=== PATIENT | female | born 1985 | race African-American/Black ===

== ENCOUNTER 2016-06-30 20:03 | Emergency (ER) | payer OTHER ==
[~2016-06-30] VITALS: Ht 172.7 cm; Wt 115.5 kg
[~2016-06-30 20:03] MED LIST: DOCU-144 PO; FER325 PO; FERR325T82 PO; ONDA8TAB9 PO; PANT40TA3 PO; PREN-46 PO
[2016-06-30 20:08] VITALS: Ht 172.7 cm; Wt 115.5 kg
[2016-06-30] MEDS ORDERED: ONDANSETRON (ODT) 4 MG TAB ODT STA (20:50)
[2016-06-30] MEDS ORDERED: HYDROCODONE/APAP (10/325) TAB PO ONE (21:00)
[2016-06-30 21:10] LABS: URINE BLOOD (Dip) POC 3+ (NEGATIVE)
--- NOTE | 2016-06-30 22:08 | RADRPT ---
PROCEDURE: CT Brain without contrast. CLINICAL INDICATION: Headaches TECHNIQUE: A CT of the brain was performed on a [employer] 64-slice CT scanner utilizing axial imaging from the skull base through the vertex without IV contrast. Multiplanar reformatted images were made. Images were reviewed on a PACS workstation. The CTDIvol is 44.97 mGy and the DLP is 720 .23 mGycm. One of the following 3 dose reduction techniques were used: Automated exposure control; adjustment of the mA and/or kV according to patient size; or use of iterative reconstruction technique. COMPARISON: None available FINDINGS: There is no intracranial hemorrhage, mass effect, or midline shift. No extra-axial fluid collection is seen. The ventricles and sulci are normal in size and configuration. The density of the brain is normal, and the jeffries white matter differentiation appears well-preserved. The visualized scalp and calvarium are normal. The bilateral orbits are normal. The bilateral para nasal sinuses, mastoid air cells and middle ear cavities are clear. IMPRESSION: 1. No evidence of acute intracranial hemorrhage, infarcts, or acute intracranial pathology. 2. Normal noncontrast head CT. RPTAT: [facility] .Jennifer Gonzales MD, Date Time Electronically viewed and signed by .Jennifer Gonzales MD, MD on 06/30/2016 22:08 .C/
--- NOTE | 2016-06-30 22:22 | RADRPT ---
PROCEDURE: CT abdomen and pelvis without contrast. CLINICAL INDICATION: Abdominal pain TECHNIQUE: CT scan of the abdomen and pelvis without contrast was performed on a multislice CT [facility] utilizing axial imaging from the lung bases through the pubis symphysis. The patient was scann ed without intravenous contrast. Sagittal and coronal reformatted images were made. The CTDIvol is 20.87 mGy and the DLP is 1309.64 mGycm. One of the following 3 dose reduction techniques were used during this CT examination: automated exp osure control; adjustment of the mA and /or kV according to patient size; or use of iterative recons truciton technique. COMPARISON: Ultrasound of the abdomen 03/07/2013 FINDINGS: The lung bases are clear. The heart size is normal. No pericardial or pleural effusions are present . The visualized liver is of normal size and attenuation without focal lesions present. The visual ized spleen, pancreas, gallbladder, and bilateral adrenal glands are normal. The bilateral kidneys are normal. No evidence for hydroureteronephrosis or nephroureterolithiasis is present. The visualized bowel is nonobstructive. No evidence for diverticulosis, diverticulitis, or appendic itis is present. Oral contrast is noted with in the colon. The visualized aorta is normal without aneurysmal dilatation. The visualized pelvis demonstrates the moderately enlarged uterus. An intrauterine device is presen t within the lower uterine segment. No evidence for masses, pathologic lymphadenopathy, ascites, or pneumoperitoneum is present. Moderately well distended urinary bladder is present. The imaged osseous structures are normal. IMPRESSION: 1. No evidence for acute intra-abdominal or pelvic pathology. 2. Moderately enlarged uterus with intrauterine device present RPTAT: [facility] .Jennifer Gonzales MD, MD Date Time Electronically viewed and signed by .Jennifer Gonzales MD, MD on 06/30/2016 22:22 .C/
[2016-06-30] MEDS ORDERED: CEPH-443 PO (22:48)
[2016-06-30] MEDS ORDERED: HYDR-902 PO (22:48)
[2016-06-30] MEDS ORDERED: IBUP-1542 PO (22:48)
--- NOTE | 2016-06-30 23:03 | ERD ---
ER Documentation Chief Complaint Date/Time DATE: 06/30/16 TIME: 23:01 Chief Complaint lower abd pain, headcahe, dizziness HPI Patient is a 30-year-old female with no medical problems who presents with headache and abdominal pain. The symptoms started last week. She had lower pelvic pain that was worse with eating. She also had right-sided leg pain. She had vaginal discharge and spotting with urination. Now she has a headache as well which was gradual in onset. She has bilateral eye pain. She tried Tylenol. She tried to schedule appointment with her primary doctor but there was no appointment available. Upon review of old medical records this is the patient's third visit to the ER since 2013. ROS All systems reviewed and are negative except as per history of present illness. Medications Home Meds Active Scripts Cephalexin* (Keflex*) 500 Mg Capsule, 500 MG PO QID for 7 Days, CAP Prov:WAYNE PERALES MD 06/30/16 Hydrocodone/Acetaminophen ([place] 10-325 Tablet) 1 Each Tablet, 1 TAB PO Q6H Y for PAIN, #7 TAB Prov:WAYNE PERALES MD 06/30/16 Ibuprofen* (Motrin*) 600 Mg Tab, 600 MG PO Q6H Y for PAIN AND OR ELEVATED TEMP, #30 TAB Prov:WAYNE PERALES MD 06/30/16 Docusate Sodium* (Colace*) 100 Mg Capsule, 100 MG PO TID, #30 CAP Prov:Nano Upton PA-C 12/21/15 Ferrous Sulfate* (Ferrous Sulfate*) 325 Mg Tabec, 325 MG PO DAILY for 30 Days, # 30 TAB Prov:Nano Upton PA-C 12/21/15 Reported Medications Ondansetron Hcl* (Zofran*) 8 Mg Tablet, 8 MG PO Q6 Y 03/09/13 Pantoprazole* (Protonix*) 40 Mg Tablet.dr, 40 MG PO BID 03/09/13 Vit #108/Iron/Fa ( ONE TABLET) 1 Each Tablet, 1 EACH PO DAILY 03/09/13 Ferrous Sulfate (CHRISTIE-TIME) 325 Mg Tablet, 325 MG PO BID 03/09/13 Allergies Allergies: Coded Allergies: No Known Allergy (Unverified , 03/05/13) PMhx/Soc Medical and Surgical Hx: pt denies Medical Hx, pt denies Surgical Hx History of Surgery: Yes (Appendectomy) Anesthesia Reaction: No Hx Neurological Disorder: No Hx Respiratory Disorders: No Hx Cardiac Disorders: No Hx Psychiatric Problems: No Hx Miscellaneous Medical Probl: No Hx Alcohol Use: No Hx Substance Use: No Hx Tobacco Use: No Smoking Status: Never smoker FmHx Family History: No diabetes Physical Exam Vitals Vital Signs Date Time Temp Pulse Resp B/P Pulse Ox O2 Delivery O2 Flow Rate FiO2 06/30/16 20:08 98.3 79 20 127/64 99 Physical Exam Const: Moderate distress secondary to pain Head: Atraumatic Eyes: Normal Conjunctiva ENT: Normal External Ears, Nose and Mouth. Neck: Full range of motion..~ No meningismus. Resp: Clear to auscultation bilaterally Cardio: Regular rate and rhythm, no murmurs Abd: Soft, pain over the bladder without any rebound or guarding Skin: No petechiae or rashes Back: No midline or flank tenderness Ext: No cyanosis, or edema Neur: Awake and alert, no slurred speech, no weakness of the upper or lower tremors bilaterally, cranial nerves II through XII are intact Psych: Normal Mood and Affect Results 24 hrs Laboratory Tests Test 06/30/16 21:12 Bedside Urine pH (LAB) 7.0 Bedside Urine Protein (LAB) 2+ Bedside Urine Glucose (UA) Negative Bedside Urine Ketones (LAB) Trace Bedside Urine Blood 3+ Bedside Urine Nitrite (LAB) Negative Bedside Urine Leukocyte Esterase (L Trace Current Medications Medications (Trade) Dose Ordered Sig/Nikhil Route PRN Reason Start Time Stop Time Status Last Admin Dose Admin Acetaminophen/ Hydrocodone Bitart ([place] (10/325)) 1 tab ONCE ONCE PO 06/30/16 21:00 06/30/16 21:01 DC 06/30/16 22:04 Ondansetron HCl (Zofran Odt) 4 mg ONCE STAT ODT 06/30/16 20:50 06/30/16 20:52 DC Procedures/MDM CT head negative per radiology. CT abdomen pelvis negative per radiology. Patient is a 30-year-old female presents with multiple complaints. She had headache and abdominal pain. Her plan was over the bladder. The patient has a mild UTI on urinalysis. I believe outpatient management is appropriate at this time. The patient will be given a prescription for ibuprofen and [place] as well as Keflex. I doubt appendicitis, cholecystitis, pancreatitis, or bowel obstruction. I doubt stroke or intracranial hemorrhage. I believe outpatient management is appropriate but she will need close follow-up with her primary doctor within 24 hours. She can return sooner for any worsening symptoms. She was given copies of the imaging test prior to discharge. Departure Diagnosis: Primary Impression: Cystitis Additional Impressions: Headache Headache type: unspecified Headache chronicity pattern: acute headache Intractability: not intractable Qualified Code: R51 - Acute nonintractable headache, unspecified headache type Abdominal pain Abdominal location: unspecified location Qualified Code: R10.9 - Abdominal pain, unspecified location Condition: Fair Patient Instructions: Abdominal Pain, Self-Care for Headaches, Cystitis Referrals: Your doctor Additional Instructions: Call your primary care doctor TOMORROW for an appointment during the next 1-2 days.See the doctor sooner or return here if your condition worsens before your appointment time. WAYNE PERALES MD June 30, 2016 23:03
[2016-06-30 23:34] VITALS: BP 130/74; PULSE 63; RESP 18; TEMP 98.3
== END 2016-06-30 23:35 | disposition home or self-care (01) ==
LOC: FTE 20:03
DX: N30.00 Acute cystitis without hematuria (principal); R51 Headache; R10.2 Pelvic and perineal pain
CPT/HCPCS: 70450; 74176; 81003; Z7502; Z7610

== ENCOUNTER 2016-12-26 20:03 | Emergency (ER) | payer SELFPAY ==
[~2016-12-26 20:03] MED LIST changes: +CEPH-443 PO; +HYDR-902 PO; +IBUP-1542 PO
== END 2016-12-26 23:53 | disposition left against medical advice (07) ==
LOC: E/R 20:03
DX: Z53.21 Procedure and treatment not carried out due to patient leaving prior to being seen by health care provider (principal)

== ENCOUNTER 2017-02-06 19:22 | Emergency (ER) | payer OTHER ==
[~2017-02-06] VITALS: Ht 170.2 cm; Wt 120.0 kg
[2017-02-06 19:26] VITALS: Ht 170.2 cm; Wt 120.0 kg
[2017-02-06] MEDS ORDERED: ONDANSETRON 4 MG INJ IV STA (20:24)
[2017-02-06] MEDS ORDERED: morphine 4 MG/ML VIAL IV STA (20:24)
[2017-02-06 21:03] LABS: ADD UMIC YES; UR ASCORBIC ACID NEGATIVE (NEGATIVE); UR BILIRUBIN (Dip) NEGATIVE (NEGATIVE); UR BLOOD (Dip) 2+ mg/dL (NEGATIVE); UR CLARITY CLEAR (CLEAR); UR COLOR YELLOW (YELLOW); UR GLUCOSE (Dip) NEGATIVE (NEGATIVE); UR KETONES (Dip) NEGATIVE (NEGATIVE); UR LEUKOCYTE ESTERASE (Dip) NEGATIVE Leu/ul (NEGATIVE); UR NITRITE (Dip) NEGATIVE (NEGATIVE); UR RBC 0 /HPF (0-5); UR TOTAL PROTEIN (Dip) NEGATIVE (NEGATIVE); UR UROBILINOGEN (Dip) 1+ mg/dL (NEGATIVE)
[2017-02-06 21:15] LABS: BASOPHILS % 0.8 % (0.0-2.0); EOSINOPHILS # 0.1 10^3/ul (0.0-0.5); EOSINOPHILS % 1.9 % (0.0-7.0); HEMATOCRIT 29.8 % (37.0-47.0); HEMOGLOBIN 10.1 g/dl (12.0-16.0); LYMPHOCYTES # 1.5 10^3/ul (0.8-2.9); LYMPHOCYTES % 31.4 % (15.0-51.0); MEAN CORPUSCULAR HEMOGLOBIN 28.3 pg (29.0-33.0); MEAN CORPUSCULAR HGB CONC 33.9 g/dl (32.0-37.0); MEAN CORPUSCULAR VOLUME 83.5 fl (82.0-101.0); MEAN PLATELET VOLUME 9.9 fl (7.4-10.4); MONOCYTE # 0.3 10^3/ul (0.3-0.9); MONOCYTES % 6.8 % (0.0-11.0); NEUTROPHIL # 2.8 10^3/ul (1.6-7.5); NEUTROPHILS % 58.9 % (39.0-77.0); PLATELET COUNT 244 10^3/UL (140-415); RED BLOOD COUNT 3.57 10^6/ul (4.20-5.40); RED CELL DISTRIBUTION WIDTH 16.2 % (11.5-14.5); WHITE BLOOD COUNT 4.7 10^3/ul (4.8-10.8)
--- NOTE | 2017-02-06 21:27 | RADRPT ---
PROCEDURE: CT abdomen and pelvis without contrast. CLINICAL INDICATION: Abdominal Pain TECHNIQUE: CT scan of the abdomen and pelvis without intravenous but with oral contrast was perfor med and is reconstructed at 2.5 mm contiguous axial intervals from the dome of the diaphragm to the inferior pubic rami.. The patient was scanned without intravenous contrast. Sagittal and coronal r eformatted images were obtained from the axial source images. The calculated radiation dose measures 1173 mGy centimeters. The CTDI measures 20 mGy. Individualized dose optimization technique was used for the performance of this exam. This included 1. Automated exposure control. 2. Adjustment of the mA and / or kV according to the patient's size. 3. Use of iterative reconstructed technique. COMPARISON: CT abdomen pelvis June 30, 2016 FINDINGS: The lung bases are clear of any infiltrate or nodule. No effusion is seen. The liver is of normal size, contour and attenuation with no mass or ductal dilatation. No gallston es are visualized. No splenic, adrenal or pancreatic abnormalities present. Kidneys are of normal size and contour. No hydronephrosis, calculus or masses seen. Ureters are o f normal course and caliber with no stone. No bladder mass or stone is present. Uterus appears norm al. No adnexal mass is seen. There is no aneurysm. No adenopathy is present. No bowel mass or obstruction is present. The appendix is not confidently visualized, however, no inflamed appendix is seen. No phlegmon, ascites or pneumoperitoneum is visualized. The osseous structures are intact. IMPRESSION: No evidence of urolithiasis, obstructive uropathy, diverticulitis or appendicitis. .Jaime Meza MD, MD Date Time Electronically viewed and signed by .Jaime Meza MD, MD on 02/06/2017 21:26 .A/
[2017-02-06 21:40] LABS: ALBUMIN 4.2 g/dl (3.3-4.9); ALBUMIN/GLOBULIN RATIO 1.07; BILIRUBIN,INDIRECT 0.7 mg/dl (0-1.1); BILIRUBIN,TOTAL 0.7 mg/dl (0.2-1.3); CALCIUM 9.9 mg/dl (8.4-10.2); CREATININE 0.9 mg/dl (0.44-1.00); POTASSIUM 3.5 mmol/L (3.5-5.1); TOTAL PROTEIN 8.1 g/dl (6.1-8.1)
--- NOTE | 2017-02-06 21:40 | ERD ---
ER Documentation Chief Complaint Chief Complaint LLQ pain for 4 days with nausea HPI This is a 31-year-old female who presents the emergency department today complaining of left sided abdominal pain and nausea for the past 3 days. indicated that patient came the other day but left because the wait was too long. States that she does have a history of anemia. States that she recently had her IUD out and had her menstrual cycle a short time after that. States that she does have a history of anemia. States he is unsure if she is . Denies any fevers or chills, dysuria. ROS All systems reviewed and are negative except as per history of present illness. Medications Home Meds Active Scripts Ondansetron Hcl* (Zofran*) 4 Mg Tablet, 4 MG PO Q6H for NAUSEA AND/OR VOMITING, #30 TAB Prov:ESTHELA NOBLE PA-C 02/06/17 Ferrous Sulfate* (Ferrous Sulfate*) 325 Mg Tabec, 325 MG PO BID, #30 TAB Prov:ESTHELA NOBLE PA-C 02/06/17 Naproxen* (Naprosyn*) 500 Mg Tablet, 500 MG PO BID Y for PAIN AND/OR INFLAMMATION, #30 TAB Prov:ESTHELA NOBLE PA-C 02/06/17 Hydrocodone/Acetaminophen ([place] 5-325 Tablet) 1 Each Tablet, 1 TAB PO Q6H Y for PAIN, #12 TAB Prov:ESTHELA NOBLE PA-C 02/06/17 Polyethylene Glycol* (Miralax*) 17 Gm Powd.pack, 17 GM PO DAILY, #15 Prov:ESTHELA NOBLE PA-C 02/06/17 Cephalexin* (Keflex*) 500 Mg Capsule, 500 MG PO QID for 7 Days, CAP Prov:WAYNE PERALES MD 06/30/16 Hydrocodone/Acetaminophen ([place] 10-325 Tablet) 1 Each Tablet, 1 TAB PO Q6H Y for PAIN, #7 TAB Prov:WAYNE PERALES MD 06/30/16 Ibuprofen* (Motrin*) 600 Mg Tab, 600 MG PO Q6H Y for PAIN AND OR ELEVATED TEMP, #30 TAB Prov:WAYNE PERALES MD 06/30/16 Docusate Sodium* (Colace*) 100 Mg Capsule, 100 MG PO TID, #30 CAP Prov:Nano Upton PA-C 12/21/15 Ferrous Sulfate* (Ferrous Sulfate*) 325 Mg Tabec, 325 MG PO DAILY for 30 Days, # 30 TAB Prov:Nano Upton PA-C 12/21/15 Reported Medications Ondansetron Hcl* (Zofran*) 8 Mg Tablet, 8 MG PO Q6 Y 03/09/13 Pantoprazole* (Protonix*) 40 Mg Tablet.dr, 40 MG PO BID 03/09/13 Vit #108/Iron/Fa ( ONE TABLET) 1 Each Tablet, 1 EACH PO DAILY 03/09/13 Ferrous Sulfate (CHRISTIE-TIME) 325 Mg Tablet, 325 MG PO BID 03/09/13 Allergies Allergies: Coded Allergies: No Known Allergy (Unverified , 03/05/13) PMhx/Soc Medical and Surgical Hx: pt denies Surgical Hx History of Surgery: Yes (Appendectomy) Anesthesia Reaction: No Hx Neurological Disorder: No Hx Respiratory Disorders: No Hx Cardiac Disorders: No Hx Psychiatric Problems: No Hx Miscellaneous Medical Probl: No Hx Alcohol Use: No Hx Substance Use: No Hx Tobacco Use: No Smoking Status: Never smoker Physical Exam Vitals Vital Signs Date Time Temp Pulse Resp B/P Pulse Ox O2 Delivery O2 Flow Rate FiO2 02/06/17 23:43 98.2 69 20 135/80 100 Room Air 02/06/17 19:26 98.3 86 24 127/77 98 Physical Exam Const: mild distress Head: Atraumatic Eyes: Normal Conjunctiva ENT: Normal External Ears, Nose and Mouth. Neck: Full range of motion..~ No meningismus. Resp: Clear to auscultation bilaterally Cardio: Regular rate and rhythm, no murmurs Abd: Soft, left lower quadrant pain non distended. Normal bowel sounds no right lower quadrant pain. No tenderness at McBurney's. Skin: No petechiae or rashes Back: No midline or flank tenderness Ext: No cyanosis, or edema Neur: Awake and alert Psych: Normal Mood and Affect Result Diagram: 02/06/17204902/06/172049 Results 24 hrs Laboratory Tests Test 02/06/17 20:30 02/06/17 20:50 Urine Color YELLOW Urine Clarity CLEAR Urine pH 7.0 Urine Specific [place] 1.010 Urine Ketones NEGATIVEmg/dL Urine Nitrite NEGATIVEmg/dL Urine Bilirubin NEGATIVEmg/dL Urine Urobilinogen 1+mg/dL Urine Leukocyte Esterase NEGATIVELeu/ul Urine Microscopic RBC 0/HPF Urine Microscopic WBC 1/HPF Urine Hemoglobin 2+mg/dL Urine Glucose NEGATIVEmg/dL Urine Total Protein NEGATIVEmg/dl White Blood Count 4.710^3/ul Red Blood Count 3.5710^6/ul Hemoglobin 10.1g/dl Hematocrit 29.8% Mean Corpuscular Volume 83.5fl Mean Corpuscular Hemoglobin 28.3pg Mean Corpuscular Hemoglobin Concent 33.9g/dl Red Cell Distribution Width 16.2% Platelet Count 34988^3/UL Mean Platelet Volume 9.9fl Neutrophils % 58.9% Lymphocytes % 31.4% Monocytes % 6.8% Eosinophils % 1.9% Basophils % 0.8% Nucleated Red Blood Cells % 0.0/100WBC Neutrophils # 2.810^3/ul Lymphocytes # 1.510^3/ul Monocytes # 0.310^3/ul Eosinophils # 0.110^3/ul Basophils # 0.010^3/ul Nucleated Red Blood Cells # 0.010^3/ul Sodium Level 142mmol/L Potassium Level 3.5mmol/L Chloride Level 105mmol/L Carbon Dioxide Level 25mmol/L Anion Gap 16 Blood Urea Nitrogen 10mg/dl Creatinine 0.90mg/dl Glucose Level 78mg/dl Calcium Level 9.9mg/dl Total Bilirubin 0.7mg/dl Direct Bilirubin 0.00mg/dl Indirect Bilirubin 0.7mg/dl Aspartate Amino Transf (AST/SGOT) 21IU/L Alanine Aminotransferase (ALT/SGPT) 31IU/L Alkaline Phosphatase 92IU/L Total Protein 8.1g/dl Albumin 4.2g/dl Globulin 3.90g/dl Albumin/Globulin Ratio 1.07 Lipase 166U/L Current Medications Medications (Trade) Dose Ordered Sig/Nikhil Route PRN Reason Start Time Stop Time Status Last Admin Dose Admin Morphine Sulfate (morphine) 4 mg ONCE STAT IV 02/06/17 20:24 02/06/17 20:26 DC 02/06/17 20:41 Ondansetron HCl (Zofran Inj) 4 mg ONCE STAT IV 02/06/17 20:24 02/06/17 20:26 DC 02/06/17 20:41 Ketorolac Tromethamine (Toradol) 30 mg ONCE STAT IV 02/06/17 22:36 02/06/17 22:37 DC 02/06/17 22:48 DIAGNOSTIC IMAGING REPORT Patient: DAYANA GARNER : 1985 Age: 31 Sex: F MR #: [id number] DOS: 02/06/172039 Ordering MD: ESTHELA NOBLE PA-C Location: [facility] Room/Bed: PROCEDURE: CT abdomen and pelvis without contrast. CLINICAL INDICATION: Abdominal Pain TECHNIQUE: CT scan of the abdomen and pelvis without intravenous but with oral contrast was performed and is reconstructed at 2.5 mm contiguous axial intervals from the dome of the diaphragm to the inferior pubic rami.. The patient was scanned without intravenous contrast. Sagittal and coronal reformatted images were obtained from the axial source images. The calculated radiation dose measures 1173 mGy centimeters. The CTDI measures 20 mGy. Individualized dose optimization technique was used for the performance of this exam. This included 1. Automated exposure control. 2. Adjustment of the mA and / or kV according to the patient's size. 3. Use of iterative reconstructed technique. COMPARISON: CT abdomen pelvis June 30, 2016 FINDINGS: The lung bases are clear of any infiltrate or nodule. No effusion is seen. The liver is of normal size, contour and attenuation with no mass or ductal dilatation. No gallstones are visualized. No splenic, adrenal or pancreatic abnormalities present. Kidneys are of normal size and contour. No hydronephrosis, calculus or masses seen. Ureters are of normal course and caliber with no stone. No bladder mass or stone is present. Uterus appears normal. No adnexal mass is seen. There is no aneurysm. No adenopathy is present. No bowel mass or obstruction is present. The appendix is not confidently visualized, however, no inflamed appendix is seen. No phlegmon, ascites or pneumoperitoneum is visualized. The osseous structures are intact. IMPRESSION: No evidence of urolithiasis, obstructive uropathy, diverticulitis or appendicitis. .Jaime Meza MD, MD Date Time Electronically viewed and signed by .Jaime Meza MD, MD on 02/06/2017 21: 26 .A/ CC: ESTHELA NOBLE PA-C DIAGNOSTIC IMAGING REPORT Patient: DAYANA GARNER : 1985 Age: 31 Sex: F MR #: [id number] DOS: 02/06/17 0000 Ordering MD: ESTHELA NOBLE PA-C Location: [facility] Room/Bed: PROCEDURE: Pelvic ultrasound. CLINICAL INDICATION: Pelvic pain. TECHNIQUE: Multiple sonographic images of the pelvis were obtained utilizing a transabdominal and endovaginal technique. The images were reviewed on a PACS workstation. COMPARISON: None. FINDINGS: The uterus is visualized and measures 9.6 x 5.8 x 7.2 cm. There is a heterogeneous fibroid within the uterine fundus measuring 3.5 x 4.3 x 3.8 cm. The endometrial echo complex is homogeneous and measures 2.9 mm. There is no evidence for free fluid. The right ovary has a normal echotexture and measures 2.7 x 2.1 x 2.0 cm. The left ovary has a normal echotexture and measures 3.2 x 1.8 x 2.3 cm. There is normal flow to both ovaries. No adnexal masses are identified. IMPRESSION: Uterine fibroid. .Vick Mathew MD, MD Date Time Electronically viewed and signed by .Vick Mathew MD, MD on 02/06/2017 22:42 .T/ CC: ESTHELA NOBLE PA-C Procedures/[facility] This a 31-year-old female who presents the emergency department today complaining of left-sided abdominal pain for the past 3 days that is worse today. Patient was in mild distress in the exam room and she had pain on her left lower quadrant and therefore did obtain laboratory workup as well as imaging. Laboratory workup shows no elevated white blood cell count. Her hemoglobin is decreased at 10.1. Platelets are within normal limits. Electrolytes are within normal limits. Glucose is within normal limits. Liver enzymes are within normal limits. Lipase is within normal limits. UA is negative for infection Urine test is negative CT abdomen pelvis noncontrast is no evidence of urolithiasis, obstructive uropathy, diverticulitis or appendicitis. Given Zofran and morphine here in the emergency department. She continued to complain of pain I reevaluated the patient and her pain appear to be lower at this time and therefore I did obtain a pelvic ultrasound Pelvic ultrasound showed a uterine fibroid that is 3.5 x 4.3 x 3.8 cm. There is no evidence for free fluid. There is normal flow to both ovaries and no adnexal masses. Symptoms at this time is consistent with left lower quadrant abdominal pain possibly related her fibroid as well as anemia. I have explained to the patient that this may be causing some of her anemia. Low suspicion for acute surgical abdomen. Patient indicated that the prescription for her iron ran out and she not refill it. Patient was given a prescription for short course of pain medication, Naprosyn, iron and MiraLAX to help prevent constipation. She was instructed to follow back up with her materials scientist. I have explained the results to the patient and her . At this time the patient is stable for discharge and outpatient management. Patient should follow up with their PCP in the next 1-2 days. They may return to the emergency department sooner for any persistent or worsening of symptoms. Patient and understood and agreed with the plan. Departure Diagnosis: Primary Impression: Abdominal pain Abdominal location: left lower quadrant Qualified Code: R10.32 - Left lower quadrant pain Additional Impression: Fibroid Uterine leiomyoma location: unspecified location Qualified Code: D25.9 - Uterine leiomyoma, unspecified location Condition: ESTHELA Gallegos PA-C Feb 06, 2017 21:40
[2017-02-06] MEDS ORDERED: KETOROLAC 30 MG INJ IV STA (22:36)
--- NOTE | 2017-02-06 22:43 | RADRPT ---
PROCEDURE: Pelvic ultrasound. CLINICAL INDICATION: Pelvic pain. TECHNIQUE: Multiple sonographic images of the pelvis were obtained utilizing a transabdominal and endovaginal technique. The images were reviewed on a PACS workstation. COMPARISON: None. FINDINGS: The uterus is visualized and measures 9.6 x 5.8 x 7.2 cm. There is a heterogeneous fibroid within th e uterine fundus measuring 3.5 x 4.3 x 3.8 cm. The endometrial echo complex is homogeneous and jc ures 2.9 mm. There is no evidence for free fluid. The right ovary has a normal echotexture and measures 2.7 x 2. 1 x 2.0 cm. The left ovary has a normal echotexture and measures 3.2 x 1.8 x 2.3 cm. There is norm al flow to both ovaries. No adnexal masses are identified. IMPRESSION: Uterine fibroid. .Vick Mathew MD, Date Time Electronically viewed and signed by .Vick Mathew MD, on 02/06/2017 22:42 .T/
[2017-02-06] MEDS ORDERED: POLY17PO6 PO (23:20)
[2017-02-06] MEDS ORDERED: HYDR-906 PO (23:20)
[2017-02-06] MEDS ORDERED: FER325 PO (23:21)
[2017-02-06] MEDS ORDERED: NAPR-260 PO (23:21)
[2017-02-06] MEDS ORDERED: ONDA4TAB8 PO (23:22)
[2017-02-06 23:43] VITALS: BP 135/80; PULSE 69; RESP 20; TEMP 98.2
== END 2017-02-06 23:45 | disposition home or self-care (01) ==
LOC: FTE 19:22
DX: D25.9 Leiomyoma of uterus, unspecified (principal)
CPT/HCPCS: 36415; 74176; 76830; 76856; 80053; 81001; 83690; 85025; 96374; 96375; J1885; J2270; J2405; Z7502

== ENCOUNTER 2017-10-08 14:56 | Emergency (ER) | END 2017-10-08 18:19 | disposition home or self-care (01) ==

== ENCOUNTER 2018-04-18 09:39 | Emergency (ER) | payer OTHER ==
[~2018-04-18] VITALS: Ht 172.7 cm; Wt 90.0 kg
[~2018-04-18 09:39] MED LIST changes: -CEPH-443 PO; -DOCU-144 PO; -FER325 PO; -HYDR-902 PO; -IBUP-1542 PO; +ONDA8TAB83 PO; -ONDA8TAB9 PO; +PNV11TAB PO; -PREN-46 PO
[2018-04-18 09:44] VITALS: Ht 172.7 cm; Wt 90.0 kg
[2018-04-18] MEDS ORDERED: KETOROLAC 30 MG INJ IM STA (10:55)
[2018-04-18] MEDS ORDERED: ACET-141 PO (11:59)
[2018-04-18] MEDS ORDERED: IBUP-1542 PO (11:59)
--- NOTE | 2018-05-06 10:15 | ERD ---
ER Documentation Chief Complaint Chief Complaint seen 04/18/18 abd pain for a few hours. no distress. HPI 32-year-old female presents for abdominal and fever times 3 hours. Abdominal pain is noted to be generalized. Patient also had fevers as noted to be subjective. She was given Tylenol with some relief of the fever returns. Denies nausea, vomiting, or diarrhea. No other compliants. ROS All systems reviewed and are negative except as per history of present illness. Medications Home Meds Active Scripts Acetaminophen* (Acetaminophen*) 500 MG Extra Strength Tablet, 500 MG PO Q4H PRN for PAIN AND OR ELEVATED TEMP, #30 TAB Prov:EDWARD JORDAN DO 04/18/18 Ibuprofen* (Motrin*) 600 Mg Tab, 600 MG PO Q6H PRN for PAIN AND OR ELEVATED TEMP, #30 TAB Prov:EDWARD JORDAN DO 04/18/18 Pantoprazole* (Protonix*) 40 Mg Tablet.dr, 40 MG PO DAILY, #10 TAB Prov:EDWARD BEARD MD 10/08/17 Reported Medications [id number] ( 19) 1 Each Tablet, 1 TAB PO DAILY, TAB 10/08/17 Pantoprazole* (Protonix*) 40 Mg Tablet.dr, 40 MG PO BID, TAB 10/08/17 Ondansetron Hcl* (Ondansetron Hcl*) 8 Mg Tablet, 8 MG PO Q6H PRN for NAUSEA AND OR VOMITING, TAB 10/08/17 Ferrous Sulfate (CHRISTIE-TIME) 325 Mg Tablet, 325 MG PO BID 03/09/13 Allergies Allergies: Coded Allergies: No Known Allergy (Unverified , 10/08/17) PMhx/Soc History of Surgery: Yes (Appendectomy) Anesthesia Reaction: No Hx Neurological Disorder: No Hx Respiratory Disorders: No Hx Cardiac Disorders: No Hx Psychiatric Problems: No Hx Miscellaneous Medical Probl: No Hx Alcohol Use: No Hx Substance Use: No Hx Tobacco Use: No Smoking Status: Never smoker Physical Exam Vitals Temperature 101, pulse 90, respiration 20, blood pressure 118/63, O2 saturation 98% on room air Repeat temp 100.2 Physical Exam Const: No acute distress Resp: Clear to auscultation bilaterally Cardio: Regular rate and rhythm, no murmurs Abd: Soft, non distended. Normal bowel sounds, mild periumbilical tenderness to palpation noted, no McBurney's point tenderness, no John sign, no rebound or guarding noted Skin: No petechiae or rashes Back: No midline or flank tenderness Ext: No cyanosis, or edema Neur: Awake and alert Psych: Normal Mood and Affect Results 24 hrs Laboratory Tests Test 04/18/18 11:16 POC Beta HCG, Qualitative NEGATIVE Current Medications Medications Dose Sig/Nikhil Start Time Status Last (Trade) Ordered Route PRN Stop Time Admin Dose Reason Admin Ketorolac 30 mg ONCE STAT 04/18/18 DC 04/18/18 Tromethamine IM 10:55 11:24 (Toradol) 04/18/18 10:57 Procedures/MDM Medical Decision Making: Differential diagnosis includes but not limited to acute gastritis, acute gastroenteritis, appendicitis, cholecystitis, pancreatitis. Patient appeared well on physical exam. Nontoxic appearing. ED course: Patient was given Toradol. Symptoms improved with treatment. Influenza swab was negative Abdominal examination was benign. Patient looks well. Low suspicion for acute abdomen. It was felt that labs and imaging were necessary given that the patient looked well, likely a viral illness. Vital signs reviewed Patient did present with a fever of 101 which improved with antipyretic medication in the ER. Patient probably has a viral illness Prescription(s): Patient given prescription for supportive medications . Patient advised to follow up with PCP in 1-2 days. Patient advised to return to ED for new or worsening symptoms. Patient stable on discharge from the ED. Disclaimer: Inadvertent spelling and grammatical errors are likely due to EHR/dictation software use and do not reflect on the overall quality of patient care. Also, please note that the electronic time recorded on this note does not necessarily reflect the actual time of the patient encounter. Departure Diagnosis: Primary Impression: Viral illness Condition: Fair Patient Instructions: Viral Syndrome (Adult) Referrals: COMM[facility]ITY CLIN[facility] YOU HAVE RECEIVED A MEDICAL SCREENING EXAM AND THE RESULTS INDICATE THAT YOU DO NOT HAVE A CONDITION THAT REQUIRES URGENT TREATMENT IN THE EMERGENCY DEPARTMENT. FURTHER EVALUATION AND TREATMENT OF YOUR CONDITION CAN WAIT UNTIL YOU ARE SEEN IN YOUR DOCTORS OFFICE WITHIN THE NEXT 1-2 DAYS. IT IS YOUR RESPONSIBILITY TO MAKE AN APPOINTMENT FOR FOLOW-UP CARE. IF YOU HAVE A PRIMARY DOCTOR --you should call your primary doctor and schedule an appointment IF YOU DO NOT HAVE A PRIMARY DOCTOR YOU CAN CALL OUR PHYSICIAN REFERRAL HOTLINE AT IF YOU CAN NOT AFFORD TO SEE A PHYSICIAN YOU CAN CHOSE FROM THE FOLLOWING [facility] [id number] [facility] [address] [facility] [facility] [address] [facility] [facility] [address]. [facility] [phone] [facility]. [facility] [address] Additional Instructions: Call your primary care doctor TOMORROW for an appointment during the next 1-2 days.See the doctor sooner or return here if your condition worsens before your appointment time. Recommend oral hydration. EDWARD JORDAN DO May 06, 2018 10:12
== END 2018-04-18 12:21 | disposition home or self-care (01) ==
LOC: FTE 09:39
DX: B34.9 Viral infection, unspecified (principal)
CPT/HCPCS: 81025; 87400; 96372; J1885; Z7502